=== PATIENT | female | born 1950 | race Caucasian/White ===

== ENCOUNTER 2017-12-03 21:21 | Inpatient (IN) | payer OTHER, MEDICARE ==
[~2017-12-03] VITALS: Ht 162.6 cm; Wt 90.7 kg
[~2017-12-03 21:21] MED LIST: ALIVE WOMEN'S1 EAC1 PO; CINNAMON500 MG PO; COZAAR100 MG PO; ECOTRIN325 MG PO; GLUCOPHAGE1000 MG PO; LASIX20 MG PO; LIPITOR10 MG PO; ONGLYZA5 MG PO; TOPROL XL25 MG PO; ZOLOFT50 MG PO
[2017-12-04 06:56] VITALS: BP 137/65
[2017-12-04 19:05] VITALS: BP 114/59
[2017-12-04 23:17] VITALS: BP 113/56
[2017-12-05 04:04] VITALS: BP 99/56
[2017-12-05] MEDS ORDERED: CYCLOBENZAPRINE10 MG PO (08:21)
[2017-12-05] MEDS ORDERED: HYDROCODON-ACE1 EAC7 PO (08:21)
[2017-12-05 08:33] VITALS: BP 116/55
[2017-12-05 12:03] VITALS: BP 108/56
== END 2017-12-05 13:34 | disposition home or self-care (01) | DRG 460 ==
LOC: ENRESERV 21:21 → 3EAST 12-04 06:23 → 2SOUTH 12-04 06:23 → ENRESERV 12-04 17:17 → 3EAST 12-04 19:05
PROVIDERS: Neurological Surgery
DX: M43.16 Spondylolisthesis, lumbar region (principal); F33.9 Major depressive disorder, recurrent, unspecified; E11.9 Type 2 diabetes mellitus without complications; M54.41 Lumbago with sciatica, right side; I25.10 Atherosclerotic heart disease of native coronary artery without angina pectoris; M48.062 Spinal stenosis, lumbar region with neurogenic claudication; K21.9 Gastro-esophageal reflux disease without esophagitis; M54.16 Radiculopathy, lumbar region; E66.9 Obesity, unspecified; Z88.0 Allergy status to penicillin; Z91.048 Other nonmedicinal substance allergy status; Z79.84 Long term (current) use of oral hypoglycemic drugs; Z68.34 Body mass index [BMI] 34.0-34.9, adult
CPT/HCPCS: 36415; 72100; 76000; 80048; 81003; 82948; 85025; 86850; 86900; 86901; C1713; J0131; J0330; J1100; J1815; J2250; J3010; J3370; J3480; Q0175; S0020